=== PATIENT | female | born 1945 | race African-American/Black ===

== ENCOUNTER 2019-09-30 20:21 | Emergency (ER) | payer OTHER, MEDICAID ==
[~2019-09-30] VITALS: Ht 162.6 cm; Wt 68.0 kg
[2019-09-30 20:30] VITALS: BP_SYST 138
--- NOTE | 2019-09-30 20:30 | NUR ---
Patient triaged and placed in er alfar[facility] wall w/ ems gurney. VSS and patient appears in no acute distress at this time. Accompanied by ems, awaiting available bed, and MD notified of need for MSE.
--- NOTE | 2019-09-30 21:00 | NUR ---
ED MD Chandra at bedside for medical evaluation.
[2019-09-30 21:37] LABS: BASOPHILS % (AUTO) 0.5 % (0.0-2.0); EOSINOPHILS # (AUTO) 0.1 K/uL (0.0-0.4); EOSINOPHILS % (AUTO) 3.2 % (0.0-4.0); HEMATOCRIT 37.6 % (36-48); HEMOGLOBIN 12.4 g/dL (12.0-16.0); LYMPHOCYTES # (AUTO) 1.5 K/uL (1.0-5.5); LYMPHOCYTES % (AUTO) 33.5 % (20.5-51.5); MEAN CORPUSCULAR HEMOGLOBIN 29 pg (27-31); MEAN CORPUSCULAR HGB CONC 33 % (32-36); MEAN CORPUSCULAR VOLUME 89 fL (79.0-98.0); MONOCYTES # (AUTO) 0.4 K/uL (0.0-1.0); MONOCYTES % (AUTO) 9.9 % (1.7-9.3); NEUTROPHILS # (AUTO) 2.3 K/uL (1.8-7.7); NEUTROPHILS % (AUTO) 52.9 % (40.0-70.0); PLATELET COUNT (AUTO) 245 K/uL (130-430); RED BLOOD CELL COUNT(AUTO) 4.24 MIL/uL (4.2-6.2); RED CELL DISTRIBUTION WIDTH 13.2 % (9.0-15.0); WHITE BLOOD COUNT (AUTO) 4.4 K/uL (4.8-10.8)
[2019-09-30 21:49] LABS: ANION GAP 4 (5-15); CALCIUM 9.1 mg/dL (8.4-11.0); CHLORIDE 106 mmol/L (98-107); GLUCOSE 129 mg/dL (70-99); SODIUM SERUM 142 mmol/L (136-145); UREA NITROGEN, BLOOD 19 mg/dL (8-21)
[2019-09-30 21:57] LABS: CHOLESTEROL 201 mg/dL (<200); HDL CHOLESTEROL 46 mg/dL (>55); LDL CHOLESTEROL 106 mg/dL (<100); TRIGLYCERIDES 228 mg/dL (30-150)
[2019-09-30 22:03] LABS: ALANINE AMINOTRANSFERASE 19 U/L (12-78); ALBUMIN 2.9 g/dL (3.4-4.8); ASPARTATE AMINOTRANSFERASE 12 U/L (10-37); TOTAL BILIRUBIN 0.2 mg/dL (0.0-1.0)
[2019-09-30 22:04] LABS: ALCOHOL, BLOOD < 3 mg/dL (<10)
[2019-09-30 22:05] LABS: ACETAMINOPHEN < 1 ug/mL (1-30)
--- NOTE | 2019-10-01 01:11 | NUR ---
Patient to ER bed 4 to gown for evaluation. Side rails up. Report given to Vinita IQBAL.
--- NOTE | 2019-10-01 01:30 | NUR ---
Patient brought in by ambulance BLS for medical clearance. Per report, patient has been experiencing increased agitation while at [facility]. Patient calm and resting at this time. No acute respiratory distress noted.
--- NOTE | 2019-10-01 01:31 | NUR ---
Patient requires medical clearance prior to transfer to [facility].
--- NOTE | 2019-10-01 03:00 | NUR ---
Patient resting comfortably at this time. No acute distress noted.
--- NOTE | 2019-10-01 04:38 | NUR ---
Miguel notified pt refused to sign .Per Miguel let the nurse sign and send the pt.
[2019-10-01 04:48] VITALS: BP_SYST 113
--- NOTE | 2019-10-01 04:48 | NUR ---
Patient to be transferred to [facility]. Is being transferred post medical clearance. Receiving facility has accepting physician and available space. ER physician has signed transfer form. Patient or responsible libertarian has agreed to transfer and signed form. Report called to Molly at receiving facility. Receiving physician is Arlette[facility] has been called for transfer. ETA is 10 minutes.
== END 2019-10-01 04:48 ==
LOC: SED 20:21
DX: R41.0 Disorientation, unspecified (principal); F20.9 Schizophrenia, unspecified; F41.9 Anxiety disorder, unspecified; K21.9 Gastro-esophageal reflux disease without esophagitis
CPT/HCPCS: 36415; 80053; 80061; 83036; 85025; 87081; 99285; G0480; G0481; G0482

== ENCOUNTER 2020-12-17 17:56 | Emergency (ER) | payer OTHER, MEDICAID | END 2020-12-17 19:11 | disposition home or self-care (01) | LOC: SED 17:56 | DX: F20.9 Schizophrenia, unspecified (principal); K21.9 Gastro-esophageal reflux disease without esophagitis | CPT/HCPCS: 99283 ==

== ENCOUNTER 2021-11-10 17:57 | Emergency (ER) | payer OTHER, MEDICAID ==
[~2021-11-10] VITALS: Ht 162.6 cm; Wt 55.3 kg
[2021-11-10 18:00] VITALS: BP_SYST 140
--- NOTE | 2021-11-10 18:44 | NUR ---
BROUGHT IN [facility], PLACED IN HALLWAY AND TRIAGED. AWAITING OPEN BED
[2021-11-10] MEDS ORDERED: LORazepam 2 MG/ML VIAL IM ONE (20:00)
[2021-11-10] MEDS ORDERED: HALOPERIDOL LACTATE 5 MG/ML VIAL IM ONE (22:15)
[2021-11-11] MEDS ORDERED: LORazepam 2 MG/ML VIAL ONE (00:17)
--- NOTE | 2021-11-11 00:30 | NUR ---
Pt with calm demeanor but continues to refuse to provide urine sample or have blood drawn. Dr. Garcia made aware. Ativan 1 mg and Haldol 5 mg IM both given to LDG per order. Pt tolerated well.
[2021-11-11] MEDS ORDERED: KETAMINE 30 MG/3 ML SYRINGE ONE (01:07)
[2021-11-11] MEDS ORDERED: KETAMINE 30 MG/3 ML SYRINGE IVP ONE (01:15)
--- NOTE | 2021-11-11 01:20 | NUR ---
# 20 gauge angiocath placed to RAC. Use of asceptic technique. Opsite placed over site. Blood return noted. Blood for lab drawn from site. Flushed with 10 cc of normal saline. No evidence of infiltration noted. Patient tolerated well.
--- NOTE | 2021-11-11 01:30 | NUR ---
Specimen for COVID-19 and MRSA antigens collected from nares and sent to lab.
--- NOTE | 2021-11-11 01:40 | NUR ---
#14 Fr. In/Out urinary cath procedure performed. Pt tolerated well. Urine specimen collected and sent to lab.
[2021-11-11 01:50] LABS: HEMATOCRIT 35.4 % (36-48); MEAN CORPUSCULAR HEMOGLOBIN 28 pg (27-31); WHITE BLOOD COUNT (AUTO) 5.4 K/uL (4.8-10.8)
[2021-11-11 01:59] LABS: ANION GAP 8 (5-15); CALCIUM 10.3 mg/dL (8.4-11.0); CHLORIDE 95 mmol/L (98-107); CREATININE 0.96 mg/dL (0.55-1.30); GLUCOSE 97 mg/dL (70-99); POTASSIUM 4.8 mmol/L (3.5-5.1); SODIUM SERUM 130 mmol/L (136-145); UREA NITROGEN, BLOOD 24 mg/dL (8-21)
[2021-11-11 02:02] LABS: BASOPHILS % (AUTO) 0.4 % (0.0-2.0); EOSINOPHILS # (AUTO) 0.1 K/uL (0.0-0.4); EOSINOPHILS % (AUTO) 1.8 % (0.0-4.0); HEMOGLOBIN 11.7 g/dL (12.0-16.0); LYMPHOCYTES # (AUTO) 1.5 K/uL (1.0-5.5); LYMPHOCYTES % (AUTO) 27.9 % (20.5-51.5); MEAN CORPUSCULAR HGB CONC 33 % (32-36); MEAN CORPUSCULAR VOLUME 85 fL (79.0-98.0); MONOCYTES # (AUTO) 0.5 K/uL (0.0-1.0); MONOCYTES % (AUTO) 9.4 % (1.7-9.3); NEUTROPHILS # (AUTO) 3.2 K/uL (1.8-7.7); NEUTROPHILS % (AUTO) 60.5 % (40.0-70.0); PLATELET COUNT (AUTO) 245 K/uL (130-430); RED BLOOD CELL COUNT(AUTO) 4.19 MIL/uL (4.2-6.2); RED CELL DISTRIBUTION WIDTH 13.3 % (9.0-15.0)
[2021-11-11 02:04] LABS: ALANINE AMINOTRANSFERASE 14 U/L (12-78); ALBUMIN 3.4 g/dL (3.4-4.8); ASPARTATE AMINOTRANSFERASE 16 U/L (10-37)
[2021-11-11 02:08] LABS: ALCOHOL, BLOOD < 3 mg/dL (<10); TOTAL BILIRUBIN < 0.1 mg/dL (0.0-1.0)
[2021-11-11 02:17] LABS: BILIRUBIN,URINE NEGATIVE (NEGATIVE); BLOOD, URINE NEGATIVE (NEGATIVE); CLARITY/URINE CLEAR (CLEAR); COLOR,URINE YELLOW (YELLOW); GLUCOSE,URINE NEGATIVE (NEGATIVE); KETONES,URINE TRACE (NEGATIVE); LEUKOCYTE ESTERASE ,URINE TRACE (NEGATIVE); NITRITE, URINE NEGATIVE (NEGATIVE); PH,URINE 6.5 (5.0-8.0); PROTEIN URINE NEGATIVE (NEGATIVE); UROBILINOGEN,URINE 0.2 (0.2-1.0)
[2021-11-11 02:21] LABS: BARBITURATE, URINE NEGATIVE (NEG <=200); BENZODIAZEPINE, URINE NEGATIVE (NEG <=150); CANNABINOID, URINE NEGATIVE (NEG <=50); COCAINE, URINE NEGATIVE (NEG <=150); METHAMPHETAMINES SCREEN,URINE NEGATIVE (NEG <=500); OPIATE, URINE NEGATIVE (NEG <=100); PHENCYCLIDINE SCREEN,URINE NEGATIVE (NEG <=25); UR TRICYCLIC ANTIDEPRESSANTS NEGATIVE (NEG <=300); URINE AMPHETAMINE NEGATIVE (NEG <=500); URINE METHADONE NEGATIVE (NEG <=200); URINE OXYCODONE SCREEN NEGATIVE (NEG <=100); URINE PROPOXYPHENE SCREEN NEGATIVE (NEG <=300)
--- NOTE | 2021-11-11 02:30 | NUR ---
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 VSS, NAD.
[2021-11-11 02:50] LABS: BACTERIA,URINE None Seen /HPF (None Seen); CALCIUM PHOSPHATE CRYSTALS,UR None Seen /HPF (None Seen); RBC,URINE 0-3 /HPF (0-3); TRICHOMONAS,URINE None Seen /HPF (None Seen); YEAST,URINE None Seen /HPF (None Seen)
[2021-11-11 02:51] LABS: CALCIUM OXALATE CRYSTALS,UR None Seen /HPF (None Seen); COARSE GRANULAR CASTS,URINE None Seen /LPF (None Seen); FINE GRANULAR CASTS,URINE None Seen /LPF (None Seen); HYALINE CASTS, URINE None Seen /LPF (None Seen); MUCUS,URINE None Seen /LPF (None Seen); OTHER CASTS, URINE None Seen /LPF (None Seen); OTHER CRYSTALS,URINE None Seen /HPF (None Seen); TRIPLE PHOSPHATE CRYSTAL,UR None Seen /HPF (None Seen); URIC ACID CRYSTALS,URINE None Seen /HPF (None Seen); URINE AMORPHOUS PHOSPHATES None Seen /HPF (None Seen); URINE AMORPHOUS URATE None Seen /HPF (None Seen); WAXY CASTS,URINE None Seen /LPF (None Seen)
--- NOTE | 2021-11-11 03:30 | NUR ---
Pt resting quietly, easily awakened, denies c/o pain or discomfort and no needs verbalized. Pt drifts back to sleep. VSS, NAD.
--- NOTE | 2021-11-11 04:02 | NUR ---
Pt report called to FARIDA Espinoza.
--- NOTE | 2021-11-11 04:20 | NUR ---
Pt resting quietly, easily awakened, denies c/o pain or discomfort and no needs verbalized at this time.
[2021-11-11 04:23] LABS: ACETAMINOPHEN < 1 ug/mL (1-30)
--- NOTE | 2021-11-11 06:00 | NUR ---
PIV RAC discontinued with angiocath tip intact, pressure dsg applied, no bleeding noted.
[2021-11-11 06:05] VITALS: BP_SYST 134
--- NOTE | 2021-11-11 06:05 | NUR ---
Patient to be transferred to [facility]. Is being transferred due to higher level of care. Receiving facility has accepting physician and available space. ER physician has signed transfer form. Patient or responsible republican has agreed to transfer and signed form. Patient belongings inventoried and will be sent with patient. Copy of nursing notes, lab reports, EKG, Physicians Orders and X-rays to be sent with patient. Report called to FARIDA Espinoza at receiving facility. Receiving physician is Dr. Grace. Pt leaves in c/o BLS transport in stable condition.
[2021-11-11 10:03] LABS: CHOLESTEROL 228 mg/dL (<200); HDL CHOLESTEROL 78 mg/dL (>55); LDL CHOLESTEROL 128 mg/dL (<100); TRIGLYCERIDES 67 mg/dL (30-150)
== END 2021-11-11 06:05 | disposition home or self-care (01) ==
LOC: SED 17:57
DX: F23 Brief psychotic disorder (principal); Z00.8 Encounter for other general examination; Z20.822 Contact with and (suspected) exposure to COVID-19
CPT/HCPCS: 36415; 80053; 80061; 80307; 81000; 82962; 83036; 85025; 87081; 87426; 96372; 96374; 99284; G0480; G0481; G0482; J1630; J2060; 99283